=== PATIENT | female | born 1980 | race Caucasian/White ===

== ENCOUNTER → 2018-01-01 15:55 | Outpatient (CLI) | payer OTHER, SELFPAY | PROVIDERS: Visit Provider Obstetrics & Gynecology | DX: R30.0 Dysuria (principal) | CPT/HCPCS: 87077; 87086; 87088; 87186 ==

== ENCOUNTER 2021-09-09 14:53 | Outpatient (CLI) | payer BC, SELFPAY ==
[2021-09-09 16:23] LABS: Hematocrit 35.2 % (37-47); Hemoglobin 11.6 g/dL (12.0-15.0); Mean Corpuscular Volume 97.2 fL (81-99); Mean Platelet Vol. 11.7 fl (6.2-12.0); Platelet Count 206 K/mm3 (150-450); RBC Distribution Width CV 12.6 % (11.6-14.6); RBC Distribution Width SD 44.9 fl (35.1-43.9); Red Blood Count 3.62 M/mm3 (4.2-5.4); White Blood Count 5.2 K/mm3 (4.4-11.0)
[2021-09-09 16:52] LABS: Estradiol 122.2 pg/mL; Follicle Stimulating Hormone 10.9 mIU/mL; Luteinizing Hormone 12.7 mIU/mL; T4 Free Direct 0.85 ng/dL (0.76-1.46)
== END 2021-09-09 23:59 | disposition short-term general hospital (02) ==
PROVIDERS: Visit Provider Obstetrics & Gynecology
DX: N93.9 Abnormal uterine and vaginal bleeding, unspecified (principal)
CPT/HCPCS: 36415; 82670; 83001; 83002; 84439; 84443; 85027

== ENCOUNTER 2021-11-22 13:21 | Outpatient (CLI) | payer BC, SELFPAY ==
[2021-11-30 17:40] LABS: HPV APTIMA, High Risk Negative (Negative)
== END 2021-11-22 23:59 | disposition home or self-care (01) ==
LOC: LABSPEC 13:23
PROVIDERS: Visit Provider Obstetrics & Gynecology
DX: Z12.4 Encounter for screening for malignant neoplasm of cervix (principal)
CPT/HCPCS: 87624; 88175; G0145

== ENCOUNTER → 2022-04-05 | Outpatient (CLI) | payer BC, SELFPAY ==
[2022-04-05 11:21] LABS: Erythrocyte Sedimentation Rate 3 mm/hr (0-30)
[2022-04-05 11:34] LABS: CRP < 2.90 mg/L (0.0-3.0); Ferritin 35 ng/mL (8-252); LDH 158 U/L (84-246)
[2022-04-06 16:09] LABS: Endomysial Antibody IgA Negative (Negative)
[2022-04-07 09:27] LABS: Immunoglobulin A 172 mg/dL (87-352); t-Transglutaminase IgA <2 U/mL (0-3)
[2022-04-12 06:08] LABS: Albumin 4.8 g/dL (2.9-4.4); Alpha-1-Globulins 0.2 g/dL (0.0-0.4); Alpha-2-Globulins 0.6 g/dL (0.4-1.0); Cytoplasmic Ab (C-ANCA) <1:20 titer (Neg:<1:20); Immunoglobulin A 171 mg/dL (87-352); Immunoglobulin G 1156 mg/dL (586-1602); Immunoglobulin M 99 mg/dL (26-217); PROEL- TOTAL PROTEIN 7.5 g/dL (6.0-8.5)
[2022-04-13 13:44] LABS: Gastrin, Serum < 10 pg/mL (0-115); Immunoglobulin E < 2 IU/mL (6-495); Perinuclear Ab (P-ANCA) <1:20 titer (Neg:<1:20)
[2022-04-15 04:07] LABS: Anti-Centromere B Ab 0.2 AI (0.0-0.9); Anti-Chromatin <0.2 AI (0.0-0.9); Anti-Jo <0.2 AI (0.0-0.9); Anti-Scleroderma-70 AB <0.2 AI (0.0-0.9); Beef <0.10 kU/L (Class 0); Corn <0.10 kU/L (Class 0); Egg, Whole <0.10 kU/L (Class 0); Milk (Cow) <0.10 kU/L (Class 0); Peanut <0.10 kU/L (Class 0); Pork <0.10 kU/L (Class 0); RNP Ab <0.2 AI (0.0-0.9); SJOGREN'S Anti-SS-A test < 0.2 AI (0.0-0.9); SJOGREN'S Anti-SS-B test < 0.2 AI (0.0-0.9); Smith Ab <0.2 AI (0.0-0.9); Soybean <0.10 kU/L (Class 0); Wheat <0.10 kU/L (Class 0)
[2022-04-17 14:11] LABS: Anti-dsDNA Ab <1 IU/mL (0-9); Chocolate <0.10 kU/L (Class 0)
== END | disposition home or self-care (01) ==
PROVIDERS: PCP Family Medicine; Referring Provider Internal Medicine Gastroenterology; Visit Provider Internal Medicine Gastroenterology
DX: R10.9 Unspecified abdominal pain (principal)
CPT/HCPCS: 36415; 82728; 82784; 82785; 82941; 83516; 83615; 84165; 85652; 86003; 86005; 86140; 86225; 86235; 86255; 86256; 86334

== ENCOUNTER → 2022-04-14 | Outpatient (CLI) | payer BC, SELFPAY ==
[2022-04-20 08:28] LABS: Calprotectin, Stool 29 ug/g (0-120)
[2022-04-24 16:13] LABS: Pancreatic Elastase, Fecal 293 (>200)
== END | disposition home or self-care (01) ==
LOC: LAB 15:28
PROVIDERS: PCP Family Medicine; Visit Provider Internal Medicine Gastroenterology
DX: R10.9 Unspecified abdominal pain (principal); K58.9 Irritable bowel syndrome, unspecified
CPT/HCPCS: 82653; 83630; 83993; 87506

== ENCOUNTER → 2022-05-12 | Outpatient (CLI) | payer BC, SELFPAY ==
--- NOTE | 2022-05-12 11:52 | NM_ITS ---
CLINICAL: 41-year-old female with history of clinical gastroparesis. SEMI-SOLID PHASE 99m Tc MAA GASTRIC EMPTYING STUDY COMPARISON: None available FINDINGS: The patient was administered 1.0 mCi of 99m Tc MAA mixed with oatmeal and consumed per os. Image acquisitions in the anterior-posterior projections were obtained for 60 minutes minutes. There is prompt visualization of the stomach. There is no gastroesophageal reflux identified. First order kinetics are maintained throughout the duration of the acquisitions. The T ? linear fit was calculated to be 55.0 minutes, (Normal: 12-56 minutes). NM/Gastric Emptying Study IMPRESSION: 1. NORMAL 99m Tc MAA semi-solid phase (oatmeal) gastric emptying imaging examination. A. There is upper limits of normal and preserved semi-solid phase gastric emptying compared to normal controls with maintained first order kinetics throughout all components of the examination. (Joan et al, J Nucl Med Tech 38: 186, 2010). Electronically Signed: Young Hartman, at 11:53 EDT ,
== END | disposition home or self-care (01) ==
LOC: NM 11:49
PROVIDERS: PCP Family Medicine; Referring Provider Internal Medicine Gastroenterology; Visit Provider Internal Medicine Gastroenterology
DX: R10.9 Unspecified abdominal pain (principal)
CPT/HCPCS: 78264; A9541

== ENCOUNTER → 2023-06-20 | Outpatient (CLI) | payer BC, SELFPAY ==
[2023-06-23 18:07] LABS: Immunoglobulin A 165 mg/dL (87-352); Immunoglobulin E < 2 IU/mL (6-495); Immunoglobulin G 1101 mg/dL (586-1602); Immunoglobulin M 97 mg/dL (26-217)
== END | disposition home or self-care (01) ==
PROVIDERS: PCP Family Medicine; Referring Provider Internal Medicine Gastroenterology; Visit Provider Internal Medicine Gastroenterology
DX: K59.00 Constipation, unspecified (principal); R19.5 Other fecal abnormalities; K90.49 Malabsorption due to intolerance, not elsewhere classified
CPT/HCPCS: 36415; 82784; 82785

== ENCOUNTER → 2024-06-12 | Outpatient (CLI) | payer BC, SELFPAY ==
--- NOTE | 2024-06-12 10:18 | NM_ITS ---
CLINICAL: 43-year-old female with history of abdominal pain. SEMI-SOLID PHASE 99m Tc SULFUR COLLOID GASTRIC EMPTYING STUDY COMPARISON: Previous gastric emptying study dated 05/12/2022 FINDINGS: The patient was administered 1.0 mCi of 99m Tc sulfur colloid mixed with oatmeal and consumed per os. Image acquisitions in the anterior-posterior projections were obtained for 60 minutes. There is prompt visualization of the stomach. There is no gastroesophageal reflux identified. First order kinetics are maintained throughout the duration of the acquisitions. The T ? linear fit was calculated to be 89.32 minutes, (Normal: 12-56 minutes) compared to 55.09 minutes defined on the prior examination. NM/Gastric Emptying Study IMPRESSION: 1. ABNORMAL 99m Tc sulfur colloid semi-solid phase (oatmeal) gastric emptying imaging examination. A. There is delayed semi-solid phase gastric emptying compared to normal controls with maintained first order kinetics throughout all components of the examination. (Joan et al, J Nucl Med Tech 38: 186, 2010). B. Overall compared to the examination dated 05/12/2022, there is interim deterioration in semisolid phase emptying as defined above. Electronically Signed: Young Hartman DO at 12:05 EDT ,
== END | disposition home or self-care (01) ==
LOC: NM 10:15
PROVIDERS: PCP Family Medicine; Referring Provider Internal Medicine Gastroenterology; Visit Provider Internal Medicine Gastroenterology
DX: R10.84 Generalized abdominal pain (principal); R19.5 Other fecal abnormalities
CPT/HCPCS: 78264; A9541